=== PATIENT | male | born 1940 | race Caucasian/White ===

== ENCOUNTER → 2017-11-07 | Day surgery (SDC) | payer MEDICARE, OTHER ==
[~2017-11-07] MED LIST: Bupivacaine 0.25% 10 ML SDV INJECT ONE; Bupivacaine 0.25% 10 ML SDV ONE; Lactated Ringers 1,000 ML IV SCH; Lidocaine 2% 20 ML MDV INJECT ONE; Lidocaine 2% 20 ML MDV ONE; Ondansetron 4 MG/2 ML SDV IVPUSH PRN; ceFAZolin 1 GM Vial IVPUSH ONE; ceFAZolin 1 GM Vial ONE; fentaNYL 100 MCG/2 ML SDV IVPUSH PRN
[2017-11-07] MEDS: Acetaminophen/HYDROcodone 325-5 MG Tab PO PRN (20:13)
--- NOTE | 2017-11-08 07:03 | OR ---
DATE OF OPERATION: 11/07/2017 PREOPERATIVE DIAGNOSIS: LEFT INGUINAL HERNIA. POSTOPERATIVE DIAGNOSIS: LEFT INGUINAL HERNIA. SURGEON: Jelani Johnson MD PROCEDURE: OPEN REPAIR OF LEFT INGUINAL HERNIA. ANESTHESIA: General. DESCRIPTION OF PROCEDURE: After patient was anesthetized satisfactorily, the patient's abdomen was prepped with iodophor. The patient was given sterile drapes. A small skin incision was made in the left groin from the pubic tubercle in the direction of the anterior superior iliac spine. It was carried down through skin, subcutaneous tissue. All bleeding points were cauterized. Then, external oblique aponeurosis was exposed. It was opened and seen, was extended to divide the external inguinal ring. The patient's anatomy was a little bit abnormal because of his previous surgery. He has had abdominal wall sarcoma excised. [place] drain was passed around the cord and surrounding structures, then dissection was carried out. There was quite a bit of scar tissue between the hernia sac, cord, and surrounding structures, which were taken down. Then, hernia sac was opened. Its neck was ligated with 2-0 Vicryl pursestring suture. Hernia sac was excised out and sent to the lab. There was a lipoma of the cord two, which was also removed and its end was ligated with 2- 0 Vicryl sutures. Then, a Prolene mesh soaked in antibiotic solution was taken, it was fashioned out for repair, it was also used to envelop the cord and surrounding structures. Then, the mesh was anchored down to the pubic tubercle and the Shalom's ligament, and then to the conjoint tendon and to the shelving edge of the inguinal ligament. Thus, the repair was totally accomplished. The cord was again completely surrounded, then irrigation was done. Hemostasis was satisfactory. External oblique aponeurosis was closed with 0 Ethibond interrupted sutures, subcutaneous tissue was closed with 3-0 Vicryl running sutures, and skin was closed with 4-0 Vicryl subcuticular sutures. The patient was given sterile dressing. He tolerated the procedure well and left the operating room in satisfactory condition. YASSINE/MARIBEL /[id number]
[2017-11-08 07:27] VITALS: BP 130/64
[2017-11-08] MEDS: Acetaminophen/HYDROcodone 325-5 MG Tab PO PRN (09:32)
== END ==
LOC: CC.SDS 09:53
PROVIDERS: ATTEND Surgery
DX: K40.90 Unilateral inguinal hernia, without obstruction or gangrene, not specified as recurrent (principal); N40.0 Benign prostatic hyperplasia without lower urinary tract symptoms; E78.5 Hyperlipidemia, unspecified; I10 Essential (primary) hypertension; R31.29 Other microscopic hematuria; Z79.899 Other long term (current) drug therapy; Z79.82 Long term (current) use of aspirin; Z90.49 Acquired absence of other specified parts of digestive tract; Z87.891 Personal history of nicotine dependence
CPT/HCPCS: 93005; A9270-GY; J0690; J7120

== ENCOUNTER 2021-07-08 11:09 | Inpatient (IN) | payer MEDICARE, OTHER ==
[2021-07-08 11:48] LABS: CORONAVIRUS COVID-19 NAA NEGATIVE (NEGATIVE); RESPIRATORY SYNCYTIAL VIR NAA NEGATIVE (NEGATIVE)
[2021-07-08 12:35] LABS: CHLORIDE,CL 106 mEq/L (98-106); SODIUM,NA 142 mEq/L (136-145)
[2021-07-08] MEDS ORDERED: Ondansetron 4 MG Tab.DIS PO PRN (13:14)
[2021-07-08] MEDS ORDERED: Sodium Chloride 0.9% 10 ML Syringe FLUSH PRN (13:14)
[2021-07-08] MEDS ORDERED: Ondansetron 4 MG/2 ML SDV IV PRN (13:14)
[2021-07-08] MEDS ORDERED: Acetaminophen 325 MG Tab PO PRN (13:14)
[2021-07-08] MEDS ORDERED: cefTRIAXone 1 GM Vial IVPUSH SCH (13:30)
[2021-07-08] MEDS: Azithromycin 500 MG in Sodium Chloride 0.9% 250 ML IV SCH (16:35)
[2021-07-08] MEDS ORDERED: Sodium Chloride 0.9% 1,000 ML IV SCH (17:15)
[2021-07-08] MEDS ORDERED: AMLODIPINE BESYLATE 5 MG PO SCH (20:00)
[2021-07-09] MEDS ORDERED: RIVAROXABAN 15 MG PO SCH (08:00)
[2021-07-09] MEDS ORDERED: METOPROLOL SUCCINATE 200 MG PO SCH (08:00)
[2021-07-09] MEDS ORDERED: Isosorbide Mononitrate 60 MG Tab.ER **PTOM PO SCH (08:00)
[2021-07-09] MEDS ORDERED: LOSARTAN 100 MG PO SCH (08:00)
[2021-07-09] MEDS: Isosorbide Mononitrate 60 MG Tab.ER PO SCH (08:44)
[2021-07-09] MEDS: Apixaban 5 MG Tab PO SCH ×2 (08:45→19:41)
[2021-07-09] MEDS: Metoprolol Succinate 100 MG Tab.ER PO SCH (08:46)
[2021-07-09] MEDS ORDERED: Bisacodyl 10 MG Supp RECTAL ONE (10:23)
[2021-07-09] MEDS ORDERED: Lactulose Soln 10 GM/15 ML 30 ML UD Cup PO ONE (10:29)
[2021-07-09] MEDS: cefTRIAXone 1 GM Vial IVPUSH SCH (12:10)
--- NOTE | 2021-07-09 12:54 | PN ---
DATE: 07/09/2021 S: Mr. Monique is an 81-year-old status post a femur procedure, removing a tumor from his leg. 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 He was postop, was at home, was getting weaker and having more cough. His brought him in and he was admitted for pneumonia. Since his admission, he has been afebrile. His vitals have been stable. He is originally on 2 L nasal cannula to maintain his sats above 90, now he is down to 1. O: GENERAL: He is walking around the hallways. He appears in no distress. NECK: Supple. Veins are flat. LUNGS: Lung sounds appear slightly diminished, but no rales, rhonchi or wheeze. CARDIAC: Tones are regular. ABDOMEN: Nontender. EXTREMITIES: He has no peripheral edema. ASSESSMENT: 1. PNEUMONIA. 2. HYPERTENSION. 3. CHRONIC ATRIAL FIBRILLATION. 4. CHRONIC ANTICOAGULATION. 5. LEIOMYOSARCOMA, METASTATIC. P: We will continue with aggressive IV antibiotics. Clinically, the patient looks much better. He is requiring less O2. PT is working with him on his strengthening and we will continue to follow. TERRIE/MARIBEL /[id number]
[2021-07-09] MEDS: Azithromycin 500 MG in Sodium Chloride 0.9% 250 ML IV SCH (15:52)
[2021-07-09] MEDS: amLODIPine 10 MG Tab PO SCH (19:40)
[2021-07-09] MEDS: atorvaSTATin 20 MG Tab PO SCH (19:40)
[2021-07-10] MEDS: Isosorbide Mononitrate 60 MG Tab.ER PO SCH (07:39)
[2021-07-10] MEDS: Apixaban 5 MG Tab PO SCH ×2 (07:39→19:38)
[2021-07-10] MEDS: Metoprolol Succinate 100 MG Tab.ER PO SCH (07:39)
[2021-07-10] MEDS: cefTRIAXone 1 GM Vial IVPUSH SCH (11:56)
[2021-07-10] MEDS: Azithromycin 500 MG in Sodium Chloride 0.9% 250 ML IV SCH (15:48)
[2021-07-10] MEDS: amLODIPine 10 MG Tab PO SCH (19:37)
[2021-07-11] MEDS: Metoprolol Succinate 100 MG Tab.ER PO SCH (07:37)
[2021-07-11] MEDS: Apixaban 5 MG Tab PO SCH ×2 (07:38→19:24)
[2021-07-11] MEDS: Isosorbide Mononitrate 60 MG Tab.ER PO SCH (07:38)
--- NOTE | 2021-07-11 08:20 | PN ---
DATE: 07/10/2021 S: Mr. Monique has been doing better. He is able to walk and feels stronger. For the most part, he has had stable vitals. He is not requiring any supplemental O2 and over the last 24 hours has been afebrile. We were able to get him off nasal cannula at half a liter and he is saturating fine on room air. O: GENERAL: He is pleasant and cooperative. He appears in no distress, sitting comfortably in a recliner. HEENT: Grossly benign. NECK: Neck veins are flat. LUNGS: Lung sounds do appear clear. I do not hear any rales. CARDIAC: Tones are regular. ABDOMEN: Soft. ASSESSMENT: 1. PNEUMONIA. 2. HYPERTENSION. 3. CHRONIC ATRIAL FIBRILLATION. 4. CHRONIC ANTICOAGULATION. 5. METASTATIC LEIOMYOSARCOMA. P: Continue with PT, IV antibiotics. I believe he will likely need to stay here through the weekend and he should be stable for discharge hopefully this coming Tuesday. TERRIE/MARIBEL /[id number]
--- NOTE | 2021-07-11 09:56 | PCM.PN ---
- General Info Date of Service: 07/11/21 Functional Status: Reports: Pain Controlled - Review of Systems General: Reports: No Symptoms. Denies: Fever HEENT: Reports: No Symptoms Pulmonary: Denies: Shortness of Breath, Cough Cardiovascular: Reports: No Symptoms Gastrointestinal: Reports: No Symptoms Musculoskeletal: Reports: No Symptoms Skin: Reports: No Symptoms Neurological: Reports: No Symptoms - Patient Data Vitals - Most Recent: Last Vital Signs Temp 97.8 F 07/11/21 08:00 Pulse 73 07/11/21 08:00 Resp 15 07/11/21 08:00 BP 148/62 H 07/11/21 08:00 Pulse Ox 92 L 07/11/21 08:00 Weight - Most Recent: 215 lb I&O - Last 24 Hours: Intake & Output 07/10/21 07/11/21 07/11/21 22:59 06:59 14:59 Intake Total 1240 50 Output Total 1000 Balance 240 50 Blu Results Last 24 Hours: Microbiology 07/08/21 12:10 Urine Culture - Final Urine, Voided Beta Hemolytic Strepto Grp B Med Orders - Current: Current Medications Acetaminophen (Acetaminophen 325 Mg Tab) 650 mg PO Q4H PRN PRN Reason: Pain (Mild 1-3)/fever Last Admin: 07/09/21 03:34 Dose: 650 mg Documented by: Amlodipine Besylate (Amlodipine 10 Mg Tab) 5 mg PO BEDTIME [facility] Last Admin: 07/10/21 19:37 Dose: 5 mg Documented by: Apixaban (Apixaban 5 Mg Tab) 2.5 mg PO BID [facility] Last Admin: 07/11/21 07:38 Dose: 2.5 mg Documented by: Atorvastatin Calcium (Atorvastatin 20 Mg Tab) 20 mg PO Q48H [facility] Last Admin: 07/09/21 19:40 Dose: 20 mg Documented by: Ceftriaxone Sodium (Ceftriaxone 1 Gm Vial) 1 gm IVPUSH Q24H [facility] Last Admin: 07/10/21 11:56 Dose: 1 gm Documented by: Azithromycin 500 mg/ Sodium (Chloride) 250 mls @ 250 mls/hr IV Q24H [facility] Last Admin: 07/10/21 15:48 Dose: 250 mls/hr Documented by: Isosorbide Mononitrate (Isosorbide Mononitrate 60 Mg Tab.Er) 60 mg PO DAILY [facility] Last Admin: 07/11/21 07:38 Dose: 60 mg Documented by: Losartan Potassium (Losartan 100 Mg) 100 mg PO DAILY [facility] Last Admin: 07/11/21 07:38 Dose: 100 mg Documented by: Metoprolol Succinate (Metoprolol Succinate 100 Mg Tab.Er) 200 mg PO DAILY [facility] Last Admin: 07/11/21 07:37 Dose: 200 mg Documented by: Ondansetron HCl (Ondansetron 4 Mg Tab.Dis) 4 mg PO Q4H PRN PRN Reason: nausea, able to take PO Ondansetron HCl (Ondansetron 4 Mg/2 Ml Sdv) 4 mg IV Q4H PRN PRN Reason: Nausea/Vomiting Sodium Chloride (Sodium Chloride 0.9% 10 Ml Syringe) 10 ml FLUSH ASDIRECTED PRN PRN Reason: Keep Vein Open Discontinued Medications Ceftriaxone Sodium (Ceftriaxone 1 Gm Vial) 1 gm IVPUSH Q24H [facility] Last Admin: 07/08/21 14:07 Dose: 1 gm Documented by: Sodium Chloride (Normal Saline) 1,000 mls @ 75 mls/hr IV ASDIRECTED [facility] Last Admin: 07/08/21 18:11 Dose: 75 mls/hr Documented by: Isosorbide Mononitrate (Isosorbide Mononitrate 60 Mg Tab.Er Ptom) 60 mg PO DAILY [facility] Last Admin: 07/09/21 11:47 Dose: Not Given Documented by: Losartan Potassium (Losartan 100 Mg Ptom) 100 mg PO DAILY [facility] Last Admin: 07/09/21 11:47 Dose: Not Given Documented by: Amlodipine Besylate (5 Mg Tablet Ptom) 0 mg PO BEDTIME [facility] Last Admin: 07/08/21 19:43 Dose: 5 mg Documented by: Metoprolol Succinate 200mg Tab Er Ptom 0 each PO DAILY [facility] Last Admin: 07/09/21 11:47 Dose: Not Given Documented by: Rivaroxaban [Xarelto ] 15 Mg Tablet Ptom 0 mg PO DAILY [facility] Last Admin: 07/09/21 11:47 Dose: Not Given Documented by: - Exam Quality Assessment: No: Supplemental Oxygen General: Alert, Oriented Lungs: Clear to Auscultation, Normal Respiratory Effort Cardiovascular: Regular Rate, Regular Rhythm GI/Abdominal Exam: Normal Bowel Sounds, Soft, Non-Tender Extremities: Normal Capillary Refill Skin: Warm, Dry Psy/Mental Status: Alert, Normal Affect - Patient Data Result Diagrams: 07/09/21 07:00 07/09/21 07:00 Blu Results Last 24 hrs: Microbiology 07/08/21 12:10 Urine Culture - Final Urine, Voided Beta Hemolytic Strepto Grp B Sepsis Event Note - Focused Exam Vital Signs: Vital Signs Temp Pulse Pulse Resp BP BP Pulse Ox 07/11/21 08:00 97.8 F 73 15 148/62 H 92 L 07/11/21 07:38 148/62 H 07/11/21 07:37 73 148/62 H 07/11/21 04:00 98.2 F 73 16 156/75 H 95 07/11/21 00:00 98.2 F 85 18 154/73 H 93 L - Problem List & Annotations (1) Pneumonia SNOMED Code(s): 972775281 Code(s): J18.9 - PNEUMONIA, UNSPECIFIED ORGANISM Status: Acute Priority: High Current Visit: Yes (2) Hypertension SNOMED Code(s): 58108746 Code(s): I10 - ESSENTIAL (PRIMARY) HYPERTENSION Status: Chronic Priority: Low Current Visit: Yes Qualifiers: Hypertension type: primary hypertension Qualified Code(s): I10 - Essential (primary) hypertension (3) A-fib SNOMED Code(s): 95547562 Code(s): I48.91 - UNSPECIFIED ATRIAL FIBRILLATION Status: Chronic Priority: Medium Current Visit: Yes Qualifiers: Atrial fibrillation type: longstanding persistent Qualified Code(s): I48.11 - Longstanding persistent atrial fibrillation (4) Leiomyosarcoma SNOMED Code(s): 095585920 Code(s): C49.9 - MALIGNANT NEOPLASM OF CONNECTIVE AND SOFT TISSUE, UNSP Status: Chronic Priority: High Current Visit: Yes - Problem List Review Problem List Initiated/Reviewed/Updated: Yes - Plan Plan:: will continue the IV antibiotics throughout the weekend encourage fluids ambulate today
[2021-07-11] MEDS: cefTRIAXone 1 GM Vial IVPUSH SCH (11:30)
[2021-07-11] MEDS: Azithromycin 500 MG in Sodium Chloride 0.9% 250 ML IV SCH (15:03)
[2021-07-11] MEDS: atorvaSTATin 20 MG Tab PO SCH (19:24)
[2021-07-11] MEDS: amLODIPine 10 MG Tab PO SCH (19:24)
[2021-07-12] MEDS: Isosorbide Mononitrate 60 MG Tab.ER PO SCH (08:18)
[2021-07-12] MEDS: Apixaban 5 MG Tab PO SCH ×2 (08:18→19:16)
[2021-07-12] MEDS: Metoprolol Succinate 100 MG Tab.ER PO SCH (08:18)
--- NOTE | 2021-07-12 08:53 | PCM.PN ---
- General Info Date of Service: 07/12/21 Admission Dx/Problem (Free Text): Pneumonia Functional Status: Reports: Pain Controlled - Review of Systems General: Reports: No Symptoms. Denies: Fever HEENT: Reports: No Symptoms Pulmonary: Reports: No Symptoms Cardiovascular: Reports: No Symptoms Gastrointestinal: Reports: No Symptoms Neurological: Reports: No Symptoms - Patient Data Vitals - Most Recent: Last Vital Signs Temp 97.2 F 07/12/21 08:00 Pulse 75 07/12/21 08:18 Resp 15 07/12/21 08:00 BP 174/93 H 07/12/21 08:18 Pulse Ox 95 07/12/21 08:00 Weight - Most Recent: 215 lb I&O - Last 24 Hours: Intake & Output 07/11/21 07/12/21 07/12/21 22:59 06:59 14:59 Intake Total 1150 100 Balance 1150 100 Med Orders - Current: Current Medications Acetaminophen (Acetaminophen 325 Mg Tab) 650 mg PO Q4H PRN PRN Reason: Pain (Mild 1-3)/fever Last Admin: 07/09/21 03:34 Dose: 650 mg Documented by: Amlodipine Besylate (Amlodipine 10 Mg Tab) 5 mg PO BEDTIME [facility] Last Admin: 07/11/21 19:24 Dose: 5 mg Documented by: Apixaban (Apixaban 5 Mg Tab) 2.5 mg PO BID [facility] Last Admin: 07/12/21 08:18 Dose: 2.5 mg Documented by: Atorvastatin Calcium (Atorvastatin 20 Mg Tab) 20 mg PO Q48H [facility] Last Admin: 07/11/21 19:24 Dose: 20 mg Documented by: Ceftriaxone Sodium (Ceftriaxone 1 Gm Vial) 1 gm IVPUSH Q24H [facility] Last Admin: 07/11/21 11:30 Dose: 1 gm Documented by: Azithromycin 500 mg/ Sodium (Chloride) 250 mls @ 250 mls/hr IV Q24H [facility] Last Admin: 07/11/21 15:03 Dose: 250 mls/hr Documented by: Isosorbide Mononitrate (Isosorbide Mononitrate 60 Mg Tab.Er) 60 mg PO DAILY [facility] Last Admin: 07/12/21 08:18 Dose: 60 mg Documented by: Losartan Potassium (Losartan 100 Mg) 100 mg PO DAILY [facility] Last Admin: 07/12/21 08:18 Dose: 100 mg Documented by: Metoprolol Succinate (Metoprolol Succinate 100 Mg Tab.Er) 200 mg PO DAILY [facility] Last Admin: 07/12/21 08:18 Dose: 200 mg Documented by: Ondansetron HCl (Ondansetron 4 Mg Tab.Dis) 4 mg PO Q4H PRN PRN Reason: nausea, able to take PO Ondansetron HCl (Ondansetron 4 Mg/2 Ml Sdv) 4 mg IV Q4H PRN PRN Reason: Nausea/Vomiting Sodium Chloride (Sodium Chloride 0.9% 10 Ml Syringe) 10 ml FLUSH ASDIRECTED PRN PRN Reason: Keep Vein Open Discontinued Medications Ceftriaxone Sodium (Ceftriaxone 1 Gm Vial) 1 gm IVPUSH Q24H [facility] Last Admin: 07/08/21 14:07 Dose: 1 gm Documented by: Sodium Chloride (Normal Saline) 1,000 mls @ 75 mls/hr IV ASDIRECTED [facility] Last Admin: 07/08/21 18:11 Dose: 75 mls/hr Documented by: Isosorbide Mononitrate (Isosorbide Mononitrate 60 Mg Tab.Er Ptom) 60 mg PO DAILY [facility] Last Admin: 07/09/21 11:47 Dose: Not Given Documented by: Losartan Potassium (Losartan 100 Mg Ptom) 100 mg PO DAILY [facility] Last Admin: 07/09/21 11:47 Dose: Not Given Documented by: Amlodipine Besylate (5 Mg Tablet Ptom) 0 mg PO BEDTIME [facility] Last Admin: 07/08/21 19:43 Dose: 5 mg Documented by: Metoprolol Succinate 200mg Tab Er Ptom 0 each PO DAILY [facility] Last Admin: 07/09/21 11:47 Dose: Not Given Documented by: Rivaroxaban [Xarelto ] 15 Mg Tablet Ptom 0 mg PO DAILY [facility] Last Admin: 07/09/21 11:47 Dose: Not Given Documented by: - Exam Quality Assessment: No: Supplemental Oxygen General: Alert, Oriented Neck: Supple Lungs: Clear to Auscultation, Normal Respiratory Effort Cardiovascular: Regular Rate, Regular Rhythm GI/Abdominal Exam: Normal Bowel Sounds, Soft, Non-Tender Extremities: Normal Inspection, No Pedal Edema, Normal Capillary Refill Skin: Warm, Dry, Intact Psy/Mental Status: Alert, Normal Affect - Patient Data Result Diagrams: 07/09/21 07:00 07/09/21 07:00 Sepsis Event Note - Focused Exam Vital Signs: Vital Signs Temp Pulse Pulse Resp BP BP Pulse Ox 07/12/21 08:18 75 174/93 H 07/12/21 08:00 97.2 F 75 15 174/93 H 95 07/12/21 04:00 98.3 F 74 20 136/74 96 07/12/21 00:00 98.4 F 74 18 149/70 H 94 L - Problem List & Annotations (1) Pneumonia SNOMED Code(s): 576426121 Code(s): J18.9 - PNEUMONIA, UNSPECIFIED ORGANISM Status: Acute Priority: High Current Visit: Yes (2) Hypertension SNOMED Code(s): 88689491 Code(s): I10 - ESSENTIAL (PRIMARY) HYPERTENSION Status: Chronic Priority: Low Current Visit: Yes Qualifiers: Hypertension type: primary hypertension Qualified Code(s): I10 - Essential (primary) hypertension (3) A-fib SNOMED Code(s): 44650968 Code(s): I48.91 - UNSPECIFIED ATRIAL FIBRILLATION Status: Chronic Priority: Medium Current Visit: Yes Qualifiers: Atrial fibrillation type: longstanding persistent Qualified Code(s): I48.11 - Longstanding persistent atrial fibrillation (4) Leiomyosarcoma SNOMED Code(s): 729377838 Code(s): C49.9 - MALIGNANT NEOPLASM OF CONNECTIVE AND SOFT TISSUE, UNSP Status: Chronic Priority: High Current Visit: Yes - Problem List Review Problem List Initiated/Reviewed/Updated: Yes - Plan Plan:: will continue the IV antibiotics throughout the weekend encourage fluids ambulate today 07/12/21 Pt is feeling better. No SOB. Less cough will finish antibiotics encourage fluids and ambualtion anticipate discharge tomorrow.
[2021-07-12] MEDS: cefTRIAXone 1 GM Vial IVPUSH SCH (11:21)
[2021-07-12] MEDS: Azithromycin 500 MG in Sodium Chloride 0.9% 250 ML IV SCH (15:37)
[2021-07-12] MEDS: amLODIPine 10 MG Tab PO SCH (19:17)
[2021-07-13] MEDS: Apixaban 5 MG Tab PO SCH (07:31)
[2021-07-13] MEDS: Metoprolol Succinate 100 MG Tab.ER PO SCH (07:32)
[2021-07-13] MEDS: Isosorbide Mononitrate 60 MG Tab.ER PO SCH (07:33)
[2021-07-13] MEDS: cefTRIAXone 1 GM Vial IVPUSH SCH (11:13)
--- NOTE | 2021-07-14 02:49 | DISCH ---
REASON FOR HOSPITALIZATION: Admission diagnoses: 1. Pneumonia. 2. Status post femur surgery. 3. Metastatic leiomyosarcoma. 4. Hypertension. 5. Chronic atrial fibrillation. DISCHARGE DIAGNOSIS: 1. PNEUMONIA. 2. STATUS POST FEMUR SURGERY. 3. METASTATIC LEIOMYOSARCOMA. 4. HYPERTENSION. 5. CHRONIC ATRIAL FIBRILLATION. HISTORY: Epifanio is an 81-year-old who was set to have a left knee replacement. He saw his oncologist prior to that surgical day and a PET scan showed a lesion in his left femur and he had a surgical procedure on that. He was at home recovering and he was just having increasing cough, shortness of breath, and was feeling weak and evaluation showed him to be hypoxic requiring supplemental O2 with basilar pneumonia. Malena Martin admitted him for IV antibiotics. HOSPITAL COURSE: The patient was started on Zithromax and Rocephin. He clinically has done well from a pulmonary standpoint. He has essentially been afebrile. He has been weaned off O2. He has minimal cough. He is having followup chest x-ray today, but suspicion is he is recovering nicely. He never had an elevated white count on admit and we will be repeating that and his CRP today. He did have negative influenza, COVID and RSV testing. The patient has gotten much stronger. He is ambulating on his own. His pain in his left side is not from his femur region, it is his knee which he said needed to have replaced in the future. I do not believe they plan on doing that for some time, but for the most part, the patient feels strong enough to go home on his own. He walks with a walker and has not had any issues with appetite. Overall, his strength is much better and we feel he is stable for discharge. I will review his lab and x-ray prior to that time. COMPLICATIONS: During his stay were none. CONSULTATIONS: PT. DISPOSITION: Discharged home. TERRIE/MARIBEL /[id number]
--- NOTE | 2021-07-15 08:22 | DISCH ---
ADDENDUM: Mr. Monique is going to go home with home health for monitoring of O2 sats and vital signs including respiratory rate, medications, and strengthening. TERRIE/MARIBEL /[id number]
== END 2021-07-13 12:45 | disposition home or self-care (01) | DRG 194 ==
LOC: CC.MS 11:09 → CC.FCMC 11:09 → UNDOADMOB 13:02 → CC.MS 13:02 → OBSVTOIN 15:33 → CC.MS 15:33
PROVIDERS: ADMIT Physician Assistant Medical; ATTEND Family Medicine
DX: J18.9 Pneumonia, unspecified organism (principal); I48.20 Chronic atrial fibrillation, unspecified; C49.9 Malignant neoplasm of connective and soft tissue, unspecified; N39.0 Urinary tract infection, site not specified; Z20.822 Contact with and (suspected) exposure to COVID-19; I48.91 Unspecified atrial fibrillation; I10 Essential (primary) hypertension; Z79.01 Long term (current) use of anticoagulants; Z79.899 Other long term (current) drug therapy; Z98.890 Other specified postprocedural states
CPT/HCPCS: 0241U; 36415; 71046; 80048; 80053; 81001; 84484; 85025; 86140; 87086; 87088; 93005; 97110-GP; 97161-GP; A9270-GY; J0456; J0696; J7030; J7050

== ENCOUNTER 2021-11-09 10:50 | Emergency (ER) | payer MEDICARE, OTHER ==
[2021-11-09] MEDS ORDERED: Sodium Chloride 0.9% 1,000 ML IV ONE (11:13)
[2021-11-09] MEDS ORDERED: Insulin Regular, Human 100 Units/ML 3 ML Vial IV ONE (12:35)
[2021-11-09] MEDS ORDERED: Glucagon,Human Recombinant 1 MG Vial IM PRN (12:35)
[2021-11-09] MEDS ORDERED: 50% Dextrose in Water 50 ML Syringe IVPUSH ONE (12:39)
[2021-11-09] MEDS ORDERED: Sodium Chloride 0.9% 1,000 ML IV SCH (13:00)
[2021-11-09] MEDS ORDERED: 50% Dextrose in Water 50 ML Syringe ONE (20:07)
== END 2021-11-09 13:56 ==
LOC: CC.ED 10:50
DX: N17.9 Acute kidney failure, unspecified (principal); C41.9 Malignant neoplasm of bone and articular cartilage, unspecified; E87.5 Hyperkalemia; R63.0 Anorexia; I48.91 Unspecified atrial fibrillation; I10 Essential (primary) hypertension; Z79.01 Long term (current) use of anticoagulants; Z79.899 Other long term (current) drug therapy; Z20.822 Contact with and (suspected) exposure to COVID-19
CPT/HCPCS: 36415; 80053; 82947; 85025; 86140; 93005; 93010; 96374; 99285; 99285-25; J1815-GY; J7030; U0002